=== PATIENT | male | born 1930 | race American Indian/Alaskan Native ===

== ENCOUNTER 2018-10-19 09:16 | Outpatient (CLI) | payer MEDICARE ==
--- NOTE | 2018-10-19 10:28 | Ultrasound Report ---
ULTRASOUND RENAL BILATERAL HISTORY: Hydronephrosis. TECHNIQUE: transabdominal ultrasound with color Doppler interrogation. FINDINGS: The right kidney measures 7.2cm. Right renal cortex: 1.1cm. The left kidney measures 8.5cm. Left renal cortex: 1.5cm. Both kidneys are atrophic with increased cortical echotexture. There is no evidence for cystic disease, shadowing calculus, mass, hydronephrosis or perinephric fluid. The bladder is partially empty but unremarkable. IMPRESSION: Chronic renal parenchymal disease. No hydronephrosis.
== END 2018-10-19 09:17 | disposition home or self-care (01) ==
LOC: US 09:16
PROVIDERS: ATTEND Urology
DX: N18.9 Chronic kidney disease, unspecified (principal)
CPT/HCPCS: 76770